=== PATIENT | male | born 1950 | race Caucasian/White ===

== ENCOUNTER 2018-02-15 13:31 | Observation (INO) | payer MEDICARE, OTHER ==
[~2018-02-15] VITALS: Ht 172.7 cm; Wt 70.3 kg
--- OUTSIDE RECORDS SUMMARY | 2018-02-15 13:38 | XMS REPORT ---
Author NYLA Thompson [facility] eClinicalWorks Address Unknown Phone Unavailable Care Team Providers Care Devulcanizer Loader Name Role Phone NYLA CHAVARRIA CP Unavailable Allergies, Adverse Reactions, Alerts Substance Reaction Event Type Niacin Info Not Available Drug Allergy Problems Problem Type Condition Code Onset Dates Condition Status Problem Diabetes type 2, controlled E11.9 Active Problem Left knee pain M25.562 Active Problem Pre-op evaluation Z01.818 Active Assessment Left knee pain M25.562 Active Assessment Pre-op evaluation Z01.818 Active Assessment Diabetes type 2, controlled E11.9 Active Medications Medication Code System Code Instructions Start Date End Date Status Dosage GlipiZIDE [facility] [address]-59 5 MG Orally Once a day 1 tablet Multivitamin [facility] 10763-92784 Orally not defined Metformin HCl [facility] [address]-79 1000 MG Orally Twice a day 1 tablet with meals Atorvastatin Calcium [facility] [address]-87 20 MG Orally Once a day 1 tablet Acetaminophen-Codeine #3 [facility] [address]-54 300-30 MG Orally every 6 hrs 1 tablet as needed Aspirin [facility] [address]-95 81 MG Orally Once a day 1 tablet Accu-Chek Sallie ND 0 w/Device not defined Lisinopril [facility] [address]-45 10 MG Orally Once a day 1 tablet Sildenafil Citrate [facility] [address]-27 100 MG Orally Once a day 1 tablet as needed Procedures Procedure Coding System Code Date COMPREHEN METABOLIC PANEL CPT-4 68128 November 13, 2015 GLYCATED HEMOGLOBIN TEST CPT-4 49956 November 13, 2015 COMPLETE CBC W/AUTO DIFF WBC CPT-4 67760 November 13, 2015 Office Visit, New Pt., Level 4 CPT-4 88838 November 13, 2015 VENIPUNCT, ROUTINE* CPT-4 84605 November 13, 2015 Vital Signs Date/Time: November 13, 2015 Temperature 98.1 F Weight 199.0 lbs Height 66 in BMI 32.12 Index Blood Pressure Diastolic 75 mmHg Blood Pressure Systolic 125 mmHg Cardiac Monitoring Heart Rate 72 bpm Results Name Result Date Reference Range Unit Abnormality Flag CBC ----Lymphs 23 09606806 % ----Neutrophils 62 85437840 % ----Baso (Absolute) 0.0 00309076 0.0-0.2 x10E3/uL ----Hemoglobin 14.4 56918793 12.6-17.7 g/dL ----Eos (Absolute) 0.3 58911289 0.0-0.4 x10E3/uL ----Hematocrit 41.8 44923392 37.5-51.0 % ----Monocytes(Absolute) 0.5 44161257 0.1-0.9 x10E3/uL ----MCV 90 84718384 79-97 fL ----Lymphs (Absolute) 1.4 73604483 0.7-3.1 x10E3/uL ----MCH 30.9 28788321 26.6-33.0 pg ----Neutrophils (Absolute) 3.6 62123226 1.4-7.0 x10E3/uL ----MCHC 34.4 73863539 31.5-35.7 g/dL ----Immature Granulocytes 0 91422795 % ----Basos 1 20588212 % ----RDW 12.9 59478136 12.3-15.4 % ----Immature Grans (Abs) 0.0 31024288 0.0-0.1 x10E3/uL ----WBC 5.8 86575007 3.4-10.8 x10E3/uL ----Platelets 221 87074235 150-379 x10E3/uL ----Eos 5 27457544 % ----RBC 4.66 93440480 4.14-5.80 x10E6/uL ----Monocytes 9 48052900 % CMP ----Globulin, Total 2.2 95377539 1.5-4.5 g/dL ----eGFR If Africn Am 105 84892354 >59 mL/min/1.73 ----eGFR If NonAfricn Am 91 53884335 >59 mL/min/1.73 ----Albumin, Serum 4.4 20151113 3.6-4.8 g/dL ----Sodium, Serum 139 88930753 134-144 mmol/L ----Protein, Total, Serum 6.6 13466092 6.0-8.5 g/dL ----BUN/Creatinine Ratio 25 20151113 10-22 H ----Calcium, Serum 9.2 34432091 8.6-10.2 mg/dL ----AST (SGOT) 23 20151113 0-40 IU/L ----Glucose, Serum 172 52560533 65-99 mg/dL H ----Alkaline Phosphatase, S 87 50610049 39-117 IU/L ----Bilirubin, Total 0.9 67602470 0.0-1.2 mg/dL ----Creatinine, Serum 0.88 85686601 0.76-1.27 mg/dL ----A/G Ratio 2.0 20151113 1.1-2.5 ----BUN 22 20151113 8-27 mg/dL ----Carbon Dioxide, Total 22 20151113 18-29 mmol/L ----ALT (SGPT) 30 20151113 0-44 IU/L ----Potassium, Serum 4.7 33492385 3.5-5.2 mmol/L ----Chloride, Serum 99 92013766 97-108 mmol/L A1C (IN HOUSE) ----A1C IN HOUSE 7.7 20151113 4.3 - 5.6 % ----Previous A1c n/a 20151113 ----Lot [id number] ----Exp date 20151113 ROUTINE VENIPUNCTURE Summary Purpose eClinicalWorks Submission
[2018-02-15] MEDS ORDERED: NS IV 1000 ML 1,000 ML IV ONE (13:42)
[2018-02-15] MEDS ORDERED: NS IV 1000 ML 1,000 ML ONE (13:42)
[2018-02-15] MEDS ORDERED: ASPIRIN 81 MG CHEW (CHILDREN'S ASA) PO ONE (13:45)
[2018-02-15] MEDS ORDERED: NITROGLYCERIN 0.4 MG SL TABS BTL 25'S SL PRN (13:45)
[2018-02-15 13:55] LABS: BASOPHILS % (AUTO) 1 % (0-10); EOSINOPHILS # (AUTO) 0.1 10^3/uL (0.0-0.3); EOSINOPHILS % (AUTO) 1 % (0-10); HEMATOCRIT 32 % (40-54); HEMOGLOBIN 10.8 G/DL (13.3-17.7); LYMPHOCYTES # (AUTO) 2.1 X 10^3 (1.0-4.0); LYMPHOCYTES % (AUTO) 28 % (12-44); MEAN CORPUSCULAR HEMOGLOBIN 31 PG (25-34); MEAN CORPUSCULAR HGB CONC 34 G/DL (32-36); MEAN CORPUSCULAR VOLUME 93 FL (80-99); MONOCYTES # (AUTO) 1.3 X 10^3 (0.0-1.0); MONOCYTES % (AUTO) 17 % (0-12); NEUTROPHILS % (AUTO) 54 % (42-75); PLATELET COUNT 174 10^3/uL (130-400); RED BLOOD COUNT 3.45 10^6/uL (4.35-5.85); RED CELL DISTRIBUTION WIDTH 15.8 % (10.0-14.5); WHITE BLOOD COUNT 7.5 10^3/uL (4.3-11.0)
[2018-02-15 13:59] LABS: INR 1.1 (0.8-1.4); PROTHROMBIN TIME PATIENT 14.2 SEC (12.2-14.7)
[2018-02-15] MEDS ORDERED: GLIP10TA13 PO (14:00)
[2018-02-15] MEDS ORDERED: OXYC5CAP18 PO (14:00)
[2018-02-15] MEDS ORDERED: METF100P2 MC (14:00)
[2018-02-15] MEDS ORDERED: TAMS0.4C2 PO (14:00)
[2018-02-15] MEDS ORDERED: SILD100T67 PO (14:00)
[2018-02-15] MEDS ORDERED: LISI10TA2 PO (14:00)
[2018-02-15] MEDS ORDERED: ATOR20TA66 PO (14:00)
[2018-02-15] MEDS ORDERED: OXYB5TAB9 PO (14:00)
[2018-02-15 14:08] LABS: ALANINE AMINOTRANSFERASE 25 U/L (0-55); ALBUMIN 3.2 GM/DL (3.2-4.5); ALKALINE PHOSPHATASE 113 U/L (40-136); BILIRUBIN,TOTAL 0.5 MG/DL (0.1-1.0); BUN/CREATININE RATIO 18; CALCIUM 9.5 MG/DL (8.5-10.1); CARBON DIOXIDE 23 MMOL/L (21-32); CHLORIDE 96 MMOL/L (98-107); CREATININE SERUM 0.67 MG/DL (0.60-1.30); GFR ESTIMATED > 60; GLUCOSE 171 MG/DL (70-105); MAGNESIUM 1.5 MG/DL (1.8-2.4); POTASSIUM 3.8 MMOL/L (3.6-5.0); SODIUM 132 MMOL/L (135-145); TOTAL PROTEIN 6.5 GM/DL (6.4-8.2)
--- NOTE | 2018-02-15 14:13 | ED Chest Pain ---
General Chief Complaint: Chest Pain Stated Complaint: PAIN IN ARMS AND CHEST Nursing Triage Note: pt reports l sided cp and l shoulder pain since yesterday. Pt also reports intermittent black tarry stools since january 27. Nursing Sepsis Screen: No Definite Risk Source: patient Exam Limitations: no limitations History of Present Illness Date Seen by Provider: Feb 15, 2018 Time Seen by Provider: 13:30 Initial Comments This 67-year-old gentleman presents to emergency room with complaint of chest pain for about 4 days. The pain is unclear the left shoulder and it is fairly constant. He has associated symptoms of some occasional dizziness and nausea. He denies any notable exacerbating or alleviating factors. He did note there was some tenderness to palpation in the area of this morning. He rates his pain as a 5-8/10. He denies any history of cardiopulmonary problems. However, he does have esophageal cancer. He has just finished chemotherapy and radiation about 3 weeks ago. He has an esophageal surgery anticipated for the near future. [facility] [place]. He has no local provider. He states the morphine prescribed to him does not control the pain. Allergies and Home Medications Allergies Coded Allergies: niacin (Verified Allergy, Unknown, 02/15/18) Home Medications Atorvastatin Calcium 20 Mg Tablet, 20 MG PO DAILY, (Reported) Lisinopril 10 Mg Tablet, 10 MG PO DAILY, (Reported) Metformin HCl 100 Gm Powder, 100 GM MC BID, (Reported) Patient Home Medication List Home Medication List Reviewed: Yes Review of Systems Constitutional: no symptoms reported EENTM: No Symptoms Reported Respiratory: No Symptoms Reported Cardiovascular: See HPI Gastrointestinal: See HPI Genitourinary: No Symptoms Reported Musculoskeletal: see HPI Skin: no symptoms reported Psychiatric/Neurological: No Symptoms Reported Endocrine: No Symptoms Reported Hematologic/Lymphatic: No Symptoms Reported Past Jbokyqd-Vttlop-Ztsvpz Hx Past Med/Social Hx: Reviewed and Corrections made Patient Social History Alcohol Use: Denies Use Recreational Drug Use: No Smoking Status: Former Smoker Type Used: Cigarettes Former Smoker, Quit: Jan 29, 1985 Recent Foreign Travel: No Contact w/Someone Who Travel: No Recent Infectious Disease Expo: No Recent Hopitalizations: No Physical Abuse: No Sexual Abuse: No Mistreated: No Fear: No Past Medical History Surgeries: Yes (ltk, lithrotripsy) Vasectomy Respiratory: No Cardiac: Yes High Cholesterol, Hypertension Neurological: No Genitourinary: Yes Benign Prostatic Hyperpl, Prostate Problems, Kidney Stones Gastrointestinal: Yes Gastroesophageal Reflux Musculoskeletal: No Endocrine: Yes Diabetes, Non-Insulin dep HEENT: No Cancer: Yes Esophageal Did You Recieve Any Treatments: No Psychosocial: No Nursing Suicide Risk Score: 0 Integumentary: No Blood Disorders: No Adverse Reaction/Blood Tranf: No Physical Exam Vital Signs Vital Signs - First Documented 02/15/18 13:49 Temp 97.5 Pulse 103 Resp 16 B/P (MAP) 133/80 (97) Pulse Ox 100 O2 Delivery Room Air Capillary Refill : Less Than 3 Seconds Height, Weight, BMI Height: 5'8.00" Weight: 155lbs. oz. 70.420421mj; BMI Method:Stated General Appearance: No Apparent Distress, WD/WN HEENT: PERRL/EOMI, Normal ENT Inspection Neck: Normal Inspection Respiratory: Chest Non Tender, Lungs Clear, Normal Breath Sounds, No Accessory Muscle Use, No Respiratory Distress Cardiovascular: Regular Rate, Rhythm, No Edema, No Murmur, Normal Peripheral Pulses Gastrointestinal: Normal Bowel Sounds, Non Tender, Soft Extremity: Normal Capillary Refill, Normal Inspection, Non Tender, No Calf Tenderness, No Pedal Edema, Other (Negative Arvind) Neurologic/Psychiatric: Alert, Oriented x3, No Motor/Sensory Deficits, Normal Mood/Affect, business continuity manager II-XII Norm as Tested Skin: Normal Color, Warm/Dry Progress/Results/Core Measures Results/Orders Lab Results Laboratory Tests Test 02/15/18 13:38 Range/Units White Blood Count 7.5 4.3-11.0 10^3/uL Red Blood Count 3.45 L 4.35-5.85 10^6/uL Hemoglobin 10.8 L 13.3-17.7 G/DL Hematocrit 32 L 40-54 % Mean Corpuscular Volume 93 80-99 FL Mean Corpuscular Hemoglobin 31 25-34 PG Mean Corpuscular Hemoglobin Concent 34 32-36 G/DL Red Cell Distribution Width 15.8 H 10.0-14.5 % Platelet Count 174 130-400 10^3/uL Mean Platelet Volume 10.0 7.4-10.4 FL Neutrophils (%) (Auto) 54 42-75 % Lymphocytes (%) (Auto) 28 12-44 % Monocytes (%) (Auto) 17 H 0-12 % Eosinophils (%) (Auto) 1 0-10 % Basophils (%) (Auto) 1 0-10 % Neutrophils # (Auto) 4.0 1.8-7.8 X 10^3 Lymphocytes # (Auto) 2.1 1.0-4.0 X 10^3 Monocytes # (Auto) 1.3 H 0.0-1.0 X 10^3 Eosinophils # (Auto) 0.1 0.0-0.3 10^3/uL Basophils # (Auto) 0.0 0.0-0.1 10^3/uL Prothrombin Time 14.2 12.2-14.7 SEC INR Comment 1.1 0.8-1.4 Activated Partial Thromboplast Time 33 24-35 SEC D-Dimer 0.87 H 0.00-0.49 UG/ML Sodium Level 132 L 135-145 MMOL/L Potassium Level 3.8 3.6-5.0 MMOL/L Chloride Level 96 L 98-107 MMOL/L Carbon Dioxide Level 23 21-32 MMOL/L Anion Gap 13 5-14 MMOL/L Blood Urea Nitrogen 12 7-18 MG/DL Creatinine 0.67 0.60-1.30 MG/DL Estimat Glomerular Filtration Rate > 60 BUN/Creatinine Ratio 18 Glucose Level 171 H 70-105 MG/DL Calcium Level 9.5 8.5-10.1 MG/DL Magnesium Level 1.5 L 1.8-2.4 MG/DL Total Bilirubin 0.5 0.1-1.0 MG/DL Aspartate Amino Transf (AST/SGOT) 28 5-34 U/L Alanine Aminotransferase (ALT/SGPT) 25 0-55 U/L Alkaline Phosphatase 113 40-136 U/L Myoglobin 37.1 10.0-92.0 NG/ML Troponin I < 0.30 <0.30 NG/ML Total Protein 6.5 6.4-8.2 GM/DL Albumin 3.2 3.2-4.5 GM/DL My Orders Orders - ADRIANNA VELEZ MD Chest Pa/Lat (2 View) (02/15/18 13:42) Saline Lock/Iv-Start (02/15/18 13:42) Ns Iv 1000 Ml (Sodium Chloride 0.9%) (02/15/18 13:42) Cbc With Automated Diff (02/15/18 13:42) Magnesium (02/15/18 13:42) Ekg Tracing (02/15/18 13:42) Cardiac Profile 1 (02/15/18 13:42) Comprehensive Metabolic Panel (02/15/18 13:42) Myoglobin Serum (02/15/18 13:42) Protime With Inr (02/15/18 13:42) Partial Thromboplastin Time (02/15/18 13:42) O2 (02/15/18 13:42) Monitor-Rhythm Ecg Trace Only (02/15/18 13:42) Lipid Panel (02/16/18 06:00) Aspirin Chewable Tablet (Baby Aspirin Ch (02/15/18 13:45) Nitroglycerin 0.4 Mg Btl 25's (Nitrostat (02/15/18 13:45) Saline Lock/Iv-Start (02/15/18 13:42) Fibrin Degradation Products (02/15/18 13:42) Ns Iv 1000 Ml (Sodium Chloride 0.9%) (02/15/18 13:42) Iohexol Injection (Omnipaque 350 Mg/Ml 1 (02/15/18 14:45) Ns (Ivpb) (Sodium Chloride 0.9% Ivpb Bag (02/15/18 14:45) Ct Angio Chest W (02/15/18 14:41) Ketorolac Injection (Toradol Injection) (02/15/18 16:30) Medications Given in ED Current Medications Medications Dose Ordered Sig/Seth Route Start Time Stop Time Status Last Admin Dose Admin Aspirin 324 mg ONCE ONCE PO 02/15/18 13:45 02/15/18 13:46 DC 02/15/18 14:06 324 MG Iohexol 150 ml ONCE ONCE IV 02/15/18 14:45 02/15/18 14:46 DC 02/15/18 14:54 140 ML Ketorolac Tromethamine 15 mg ONCE ONCE IVP 02/15/18 16:30 02/15/18 16:31 DC 02/15/18 16:23 15 MG Sodium Chloride 100 ml ONCE ONCE IV 02/15/18 14:45 02/15/18 14:46 DC 02/15/18 14:54 100 ML Sodium Chloride 1,000 ml @ 0 mls/hr Q0M ONCE IV 02/15/18 13:42 02/15/18 13:45 DC 02/15/18 13:47 1,000 MLS/HR Vital Signs/I&O 02/15/18 02/15/18 13:49 13:49 Temp 97.5 Pulse 103 Resp 16 B/P (MAP) 133/80 (97) Pulse Ox 100 O2 Delivery Room Air Blood Pressure Mean: 97 Progress Progress Note : Progress Note Patient was seen and evaluated with the chest pain protocol. Nitroglycerin was not administered as he had low normotensive blood pressures. He did receive a liter of IV fluids which seemed to improve his tachycardia. Aspirin was given as part of the protocol. Toradol was administered for his pain. I did contact the [facility] this [facility] and requested that I contact the [facility] on his behalf. I was informed there is no prior authorization for this visit but payment cannot be guaranteed. Case was discussed with Dr. Contreras who felt it was most appropriate for patient to be admitted for cardiac rule out. I agree with this assessment given patient's risk factors and the fact that he will be undergoing a significant surgery in the near future. Pulmonary embolus was ruled out with CT angiogram after positive D dimer. Initial ECG Impression Date: Feb 15, 2018 Initial ECG Impression Time: 13:36 Initial ECG Rate: 106 Initial ECG Rhythm: S.Tach Comment Sinus tachycardia with no ST elevation. Borderline ST depression in V2 through V4. Normal intervals or axis deviation. Diagnostic Imaging Diagonstic Imaging: Xray Plain Films/CT/US/NM/MRI: chest Comments Chest x-ray viewed by me and report reviewed. See report below: NAME: [facility] REC#: [id number] PT STATUS: REG ER : 1950 PHYSICIAN: ADRIANNA VELEZ MD ADMIT DATE: 02/15/18/ER Draft Date of Exam:02/15/18 CHEST PA/LAT (2 VIEW) EXAM: CHEST PA/LAT (2 VIEW) INDICATION: Chest pain. COMPARISON: None. FINDINGS: Normal heart size and pulmonary vascularity. No focal pulmonary opacity, pleural effusion, or pneumothorax. Chronic left rib fractures. No acute osseous findings. IMPRESSION: No acute cardiopulmonary findings. Dictated on workstation # [id number] Dict: 02/15/18 1428 Trans: 02/15/18 1431 [id number] Interpreted by: SHILA CLINE MD Diagonstic Imaging: CT Plain Films/CT/US/NM/MRI: chest Comments CT angiogram of the chest viewed by me and report reviewed. See report below: NAME: [facility] REC#: [id number] PT STATUS: REG ER : 1950 PHYSICIAN: ADRIANNA VELEZ MD ADMIT DATE: 02/15/18/ER Draft Date of Exam:02/15/18 CT ANGIO CHEST W PROCEDURE: CT angiography of the chest with contrast. TECHNIQUE: Multiple contiguous axial images were obtained through the chest after uneventful bolus administration of intravenous contrast. Reconstructed CTA MIP acquisitions were also performed. INDICATION: Chest pain radiating to left shoulder. History of esophageal cancer. COMPARISON: Chest radiographs from earlier today. FINDINGS: Normal caliber thoracic aorta without evidence of aneurysm or dissection. No pulmonary artery filling defects. Normal heart size. Small pericardial effusion measuring up to 0.4 cm in maximum thickness. No mediastinal or hilar lymphadenopathy. Diffuse wall thickening of a dilated esophagus below the level of the aly. Mild linear scarring in the right lung base. The lungs are otherwise clear. No endobronchial lesions. No pleural effusion or pneumothorax. The visualized upper abdominal contents are unremarkable. Chronic left rib fractures. No acute osseous findings. IMPRESSION: 1. Diffuse dilatation and wall thickening of the esophagus below the level of the aly. No fluid collections or free air in the mediastinum. 2. Normal caliber thoracic aorta without evidence of dissection. No pulmonary emboli. 3. Small pericardial effusion measuring up to 4 mm. Dictated on workstation # [id number] Dict: 02/15/18 1514 Trans: 02/15/[address] [facility] [id number] Interpreted by: SHILA CLINE MD Departure Communication (Admissions) Time/Spoke to Admitting Phy: 16:33 Dr. Gill Time/Spoke to Consulting Phy: 15:30 Dr. Contreras was consulted and would like the patient to be admitted for cardiac rule out. Patient has not had a cardiac evaluation performed in the past. He is preparing to undergo a significant surgery related to his esophageal cancer. Cardiac rule out and clearance should be obtained prior to that surgery. Patient has risk factors that increase his risk for cardiac disease including a remote smoking history and diabetes at present. Impression Primary Impression: Chest pain Qualified Codes: R07.9 - Chest pain, unspecified Additional Impression: Esophageal cancer Qualified Codes: C15.9 - Malignant neoplasm of esophagus, unspecified Disposition: ADMITTED INPATIENT Condition: Improved Admissions Decision to Admit Reason: Admit from ER (General) Decision to Admit/Date: Feb 15, 2018 Time/Decision to Admit Time: 15:30 Departure-Patient Inst. Referrals: FRANCHESCA JEFFERS MD (PCP) Primary Care Physician ADRIANNA VELEZ MD Feb 15, 2018 14:13
[2018-02-15 14:14] LABS: MYOGLOBIN SERUM 37.1 NG/ML (10.0-92.0)
--- NOTE | 2018-02-15 14:31 | Diagnostic Imaging Report ---
EXAM: CHEST PA/LAT (2 VIEW) INDICATION: Chest pain. COMPARISON: None. FINDINGS: Normal heart size and pulmonary vascularity. No focal pulmonary opacity, pleural effusion, or pneumothorax. Chronic left rib fractures. No acute osseous findings. IMPRESSION: No acute cardiopulmonary findings. Dictated by: Dictated on workstation # [id number]
[2018-02-15] MEDS ORDERED: NS 100 ML (IVPB) BAG IV ONE (14:45)
[2018-02-15] MEDS ORDERED: IOHEXOL 350 MG/ML 150 ML (OMNIPAQUE 350) VIAL IV ONE (14:45)
--- NOTE | 2018-02-15 15:22 | Diagnostic Imaging Report ---
PROCEDURE: CT angiography of the chest with contrast. TECHNIQUE: Multiple contiguous axial images were obtained through the chest after uneventful bolus administration of intravenous contrast. Reconstructed CTA MIP acquisitions were also performed. INDICATION: Chest pain radiating to left shoulder. History of esophageal cancer. COMPARISON: Chest radiographs from earlier today. FINDINGS: Normal caliber thoracic aorta without evidence of aneurysm or dissection. No pulmonary artery filling defects. Normal heart size. Small pericardial effusion measuring up to 0.4 cm in maximum thickness. No mediastinal or hilar lymphadenopathy. Diffuse wall thickening of a dilated esophagus below the level of the aly. Mild linear scarring in the right lung base. The lungs are otherwise clear. No endobronchial lesions. No pleural effusion or pneumothorax. The visualized upper abdominal contents are unremarkable. Chronic left rib fractures. No acute osseous findings. IMPRESSION: 1. Diffuse dilatation and wall thickening of the esophagus below the level of the aly. No fluid collections or free air in the mediastinum. 2. Normal caliber thoracic aorta without evidence of dissection. No pulmonary emboli. 3. Small pericardial effusion measuring up to 4 mm. Dictated by: Dictated on workstation # [id number]
[2018-02-15] MEDS ORDERED: KETOROLAC 30 MG/ML VIAL IVP ONE (16:30)
[2018-02-15 18:15] VITALS: BP 125/77
[2018-02-15] MEDS ORDERED: PATIENT MAY USE OWN MEDS, ALL PO SCH (18:15)
[2018-02-15 20:00] VITALS: BP 134/65
[2018-02-15] MEDS: morphine INJ 10 MG/ML 1ML (SYR OR VIAL) IV PRN (20:15)
[2018-02-15] MEDS: inSUlin ASPART (NovoLOG) 1 UNIT/0.01 ML (CHARGE PER UNIT) SC SCH (20:19)
[2018-02-16] VITALS (7 sets, daily range): BP systolic 112–139; BP diastolic 54–80
[2018-02-16] MEDS: KETOROLAC 15 MG/ML VIAL IV PRN ×3 (01:54→13:47)
[2018-02-16 03:40] LABS: CHOLESTEROL 78 MG/DL (< 200); HDL CHOLESTEROL 23 MG/DL (40-60); TRIGLYCERIDES 89 MG/DL (<150); VLDL CHOLESTEROL 18 MG/DL (5-40)
[2018-02-16] MEDS: morphine INJ 10 MG/ML 1ML (SYR OR VIAL) IV PRN ×4 (04:15→15:03)
[2018-02-16] MEDS: inSUlin ASPART (NovoLOG) 1 UNIT/0.01 ML (CHARGE PER UNIT) SC SCH ×3 (06:09→14:11)
[2018-02-16] MEDS ORDERED: ASPIRIN E.C. 81 MG (ECOTRIN) TAB PO SCH (09:00)
[2018-02-16] MEDS ORDERED: REGADENOSON 0.4 MG/5 ML SYR (LEXISCAN) IV ONE ×2 (09:12→09:30)
--- NOTE | 2018-02-16 09:14 | Consultation-Cardiology ---
HPI-Cardiology Cardiology Consultation: Date of Consultation 02/16/18 Date of Admission Attending Physician Char Gill MD Admitting Physician No,Local Physician Consulting Physician Carie CONTRERAS MD HPI: Time Seen by Provider: 09:15 Chief Complaint: Chest pain This is a 67-year-old gentleman with history of esophageal cancer who underwent radiation and chemotherapy till 01/23/2018. Esophageal cancer surgery is expected in February. He has history of diabetes, hypertension, hyperlipidemia. He quit smoking in 1990. He presents with chest pain all day yesterday and today. Even during my history he was complaining of chest pain. No exacerbating or relieving factors. No radiation. Central chest pain. Moderate to severe intensity. Review of Systems-Cardiology Review of Systems Constitutional: As described under HPI; No As described under HPI, No no symptoms reported, No chills, No fever, No lightheadedness Eyes: No As described under HPI, No no symptoms reported, No blindness, No blurred vision, No contact lenses, No drainage, No decreased acuity, No foreign body sensation, No pain, No vision change Ears/Nose/Throat: No As described under HPI, No no symptoms reported, No chronic hearing loss, No ear discharge, No ear pain, No nasal drainage, No ulcerations Respiratory: No no symptoms reported; As described under HPI; No As described under HPI, No cough, No orthopnea, No shortness of breath, No SOB with excertion Cardiovascular: No no symptoms reported; As described under HPI; No As described under HPI; chest pain; No edema, No irregular heart rate, No lightheadedness, No palpitations Gastrointestinal: No no symptoms reported, No As described under HPI, No abdomen distended, No abdominal pain, No blood streaked bowels, No constipation , No diarrhea, No nausea, No vomiting, No stool coloration changes Genitourinary: No As described under HPI, No burning, No dysuria, No discharge , No frequency, No flank pain, No hematuria, No urgency Musculoskeletal: No no symptoms reported, No As describe under HPI, No back pain, No gout, No joint pain, No joint swelling, No muscle pain, No muscle stiffness, No neck pain, No other Skin: No no symptoms reported, No As described under HPI, No change in color, No change in hair/nails, No dryness, No lesions, No lumps, No rash, No other, No skin related problems, No ulcerations, No rash on exposed areas, No ulcerations on exposed areas Psychiatric/Neurological: No anxiety, No depression, No seizure, No focal weakness, No syncope Hematologic: No bleeding abnormalities [id number] Hx Patient Social History Alcohol Use: Denies Use Recreational Drug Use: No Smoking Status: Former Smoker Type Used: Cigarettes Recent Foreign Travel: No Recent Infectious Disease Expo: No Hospitalization with Isolation: Denies Physical Abuse Screen: No Sexual Abuse: No Past Medical History PMH As described under Assessment. Allergies and Home Medications Allergies Coded Allergies: niacin (Verified Allergy, Unknown, 02/15/18) Home Medications Atorvastatin Calcium 20 Mg Tablet, 10 MG PO Q48H, (Reported) TAKES 1/2 (20MG) TABLET Chlorpromazine HCl 25 Mg Tablet, 25 MG PO TID PRN for HICCUPS, (Reported) Docusate Sodium 100 Mg Capsule, 100 MG PO BID, (Reported) Glipizide 10 Mg Tablet, 10 MG PO BID, (Reported) Lisinopril 10 Mg Tablet, 5 MG PO DAILY, (Reported) TAKES 1/2 (10MG) TABLET Metformin HCl 1,000 Mg Tablet, 1,000 MG PO BID, (Reported) Morphine Sulfate 10 Mg/5 Ml Solution, 1 TSP PO Q6H PRN for PAIN-SEVERE, ( Reported) Multivitamin 1 Each Tablet, 1 TAB PO DAILY, (Reported) Naproxen 500 Mg Tablet, 500 MG PO BID PRN for PAIN-MILD, (Reported) Omeprazole 20 Mg Capsule.dr, 20 MG PO DAILY, (Reported) Ondansetron HCl 8 Mg Tablet, 8 MG PO Q8H PRN for NAUSEA/VOMITING-1ST LINE, ( Reported) Sildenafil Citrate 100 Mg Tablet, 100 MG PO UD PRN for ED, (Reported) Tamsulosin HCl 0.4 Mg Cap.er.24h, 0.4 MG PO HS, (Reported) Patient Home Medication List Home Medication List Reviewed: Yes Physical Exam-Cardiology Physical Exam Vital Signs/I&O 02/16/18 02/16/18 02/16/18 02/16/18 04:00 04:00 07:00 08:00 Temp 98.4 Pulse 89 95 Resp 19 B/P (MAP) 123/73 (90) Pulse Ox 96 97 99 O2 Delivery Room Air Room Air Room Air 02/16/18 02/16/18 02/16/18 02/16/18 08:00 09:00 09:17 11:00 Temp 99.3 Pulse 92 101 113 Resp 18 16 B/P (MAP) 133/80 (97) 138/76 (96) 112/54 (73) Pulse Ox 99 99 98 98 O2 Delivery Room Air Room Air Room Air 02/16/18 02/16/18 02/16/18 12:00 13:00 13:00 Pulse 95 97 B/P (MAP) 120/61 (80) Pulse Ox 97 98 O2 Delivery Room Air 02/16/18 00:00 Intake Total 800 ml Balance 800 ml Capillary Refill : Less Than 3 Seconds Constitutional: appears stated age, AAO x 3; No apparent distress; well- developed, well-nourished HEENT: PERRL; No normal ENT inspection, No TMs normal, No pharynx normal, No scleral icterus (R), No scleral icterus (L), No pale conjunctivae (R), No pale conjunctivae (L), No photophobia, No TM abnormal (R), No TM abnormal (L), No pharyngeal erythema, No tonsillar exudate, No other, No discharge, No EOMI; hearing is well preserved; No hard of hearing; oral hygience is good; No ulceration, No xanthelasmas are seen Neck: No non-tender, No full range of motion, No supple, No normal inspection, No carotid bruit, No limited range of motion, No lymphadenopathy (R), No lymphadenopathy (L), No tender lateral, No tender midline, No thyromegaly, No other; carotid pulses are 2 + bilaterally; No with good upstrokes Respiratory: No accessory muscle use, No respiratory distress, No chest tender , No chest expansion is symmetric; chest is bilaterally symmetric; No lungs clear to percussion; lungs clear to auscultation; No crackles, No rhonchi, No rales, No stridor, No wheezing, No pleural rub, No other Cardiovascular: regular rate-rhythm; No irregularly irregular, No extra beats, No parasternal heave is noted, No JVD, No edema, No bradycardia, No tachycardia , No point of maximal impulse, No cardiac thrills are palpable; S1 and S2; No gallop/S3, No gallop/S4, No diastolic murmur, No systolic murmur, No friction rub, No click, No other Gastrointestinal: No tender, No soft, No round, No distended, No pulsatile mass , No organomegaly, No guarding, No rebound, No tenderness, No hernia, No mass, No audible bowel sounds, No abnormal bowel sounds, No abdominal bruits, No spleenomegaly, No other Rectal: deferred Extremities: No normal range of motion, No non-tender, No normal inspection, No pedal edema, No calf tenderness, No normal capillary refill, No pelvis stable , No calf tenderness, No inflammation, No pedal edema, No slow capillary refill , No swelling, No other, No abrasion, No clubbing, No cyanosis, No ecchymosis, No laceration, No no lower extremity edema bilateral, No significant edema, No tenderness, No wound Neurologic/Psychiatric: no motor/sensory deficits, alert, normal mood/affect, oriented x 3, power is 5/5 both on sides Skin: No normal color, No warm/dry, No cyanosis, No cool, No diaphoresis, No damp, No ecchymosis, No jaundice, No mottled, No pallor, No rash, No tattoos/ piercings, No ulcerations, No rash on exposed areas, No ulcerations on exposed areas, No other Data Review Labs Laboratory Tests 02/15/18 20:18: Glucometer 144H 02/16/18 03:05: Triglycerides Level 89, Cholesterol Level 78, LDL Cholesterol Direct 39, VLDL Cholesterol 18, HDL Cholesterol 23L 02/16/18 05:22: Glucometer 105 02/16/18 08:05: Glucometer 110 02/16/18 14:06: Glucometer 205H ECG Impression ECG Initial ECG Rhythm: Normal Sinus A/P-Cardiology Assessment/Admission Diagnosis Chest pain, diabetes, hypertension, hyperlipidemia, history of radiation to the chest, esophageal cancer, hyponatremia Plan Chest pain, continues chest pain. Acute coronary syndrome ruled out with negative troponin. Negative EKG. Nuclear stress test and echocardiogram were within normal limits. Chest pain is very likely noncardiac in origin. Will discuss with Dr. Gill. diabetes, deferred to primary team. hypertension, patient's blood pressure is borderline low therefore no blood pressure medications. hyperlipidemia, lipid profile within reasonable limits. No statin is required. history of radiation to the chest, esophageal cancer, chest pain could be due to esophageal cancer. hyponatremia, unclear etiology. Thank you for your consultation. Please call me if you have any questions. Irasema Contreras MD, FACP, FACC, FSCAI, FHRS, CCDS Interventional Cardiology Cardiac Electrophysiology Vascular Medicine and Endovascular Interventions Clinical Quality Measures AMI/AHF: ASA po Prior to arrival: No DVT/VTE Risk/Contraindication: Risk Factor Score Per Nursin RFS Level Per Nursing on Admit: 4+=Very High Carie CONTRERAS MD Feb 16, 2018 9:14 am
[2018-02-16] MEDS ORDERED: CATHETER FLUSH 10 ML SYR IV PRN (09:30)
[2018-02-16] MEDS ORDERED: MULT-35 PO (12:51)
[2018-02-16] MEDS ORDERED: CHLO25TA20 PO (12:51)
[2018-02-16] MEDS ORDERED: METF10002 PO (12:51)
[2018-02-16] MEDS ORDERED: NAPR-915 PO (12:51)
[2018-02-16] MEDS ORDERED: MORP10SO15 PO (12:51)
[2018-02-16] MEDS ORDERED: OMEP20CA12 PO (12:51)
[2018-02-16] MEDS ORDERED: DOCU-143 PO (12:51)
[2018-02-16] MEDS ORDERED: ONDA8TAB6 PO (13:00)
--- NOTE | 2018-02-16 13:38 | Cardiology Stress Test Report ---
Stress Test Report Type of NM Stress Test: Test Type: LEXISCAN 0.4MG/5ML Date of Procedure/Referring: Date of Procedure: Feb 16, 2018 PCP Char Gill MD Admitting Physician No,Local Physician Indications: Chest pain Baseline Heart Rate: 106 Baseline Blood Pressure: Blood Pressure Systolic: 138 Blood Pressure Diastolic: 76 Baseline EKG: Baseline EKG: sinus rhythm Summary & Conclusion: Summary: The patient was brought to the stress lab after informed consent was taken. Stress test was performed according to the Lexiscan protocol. 0.4 mg of IV Lexiscan was given. Low-grade exercise was performed. Baseline EKG showed sinus rhythm at 106 BPM. Initial blood pressure was 138/76 mmHg. Maximum heart rate was 128 bpm and blood pressure 142/76 mmHg. Patient did not have any chest pain, arrhythmias or ST segment changes during the stress test. 9.84 mCi of Myoview were given for rest imaging and 31.7 mCi of Myoview given for stress imaging. Transient ischemic dilatation score 1.02, EF 59 percent. Normal wall motion. Normal myocardial perfusion imaging during rest and stress. Conclusion: Pharmacological stress test was negative for ischemia. Normal LV function with no wall motion abnormalities. Normal myocardial perfusion imaging during rest and stress. Carie BENNETT MD Feb 16, 2018 1:38 pm
--- NOTE | 2018-02-16 15:27 | History & Physical-Hospitalist ---
History of Present Illness HPI/Chief Complaint The patient is a 67-year-old white male who was admitted after he presented to the emergency room with a chief complaint of left-sided and left shoulder pain. This began about one week ago and has been largely continuous and increasing in intensity. 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 He has been being treated at the [facility] with chemotherapy and radiation therapy which he has now completed. He is to be seen by his surgeon at the [facility] in mid February and if he checks out he would be scheduled for surgery with attempt to cure. He has not had previous known heart disease. He has had some shoulder problems. He states that he has been unable to sleep on the left shoulder this past week. Source: patient Exam Limitations: no limitations Date Seen 02/16/18 Time Seen by Provider: 14:45 Attending Physician Char Gill MD PCP No,Local Physician Referring Physician Date of Admission Feb 15, 2018 at 16:40 Home Medications & Allergies Home Medications Reviewed patient Home Medication Reconciliation performed by pharmacy medication reconciliations systems testing laboratory technician and/or nursing. Patients Allergies have been reviewed. Allergies Allergies Coded Allergies niacin (Verified Allergy, Unknown, 02/15/18) Past Pnwlvae-Zfomtl-Mimsxa Hx Past Med/Social Hx: Reviewed Nursing Past Med/Soc Hx, Reviewed and Corrections made Patient Social History Alcohol Use: Denies Use Recreational Drug Use: No Smoking Status: Former Smoker Former Smoker, Quit: Feb 15, 1990 Type Used: Cigarettes Physical Abuse Screen: No Sexual Abuse: No Recent Foreign Travel: No Contact w/other who traveled: No Recent Hopitalizations: Yes Recent Infectious Disease Expo: No Seasonal Allergies Seasonal Allergies: No Past Medical History Surgeries: Vasectomy Currently Using CPAP: Yes (SET AT 20) Currently Using BIPAP: No Cardiac: High Cholesterol, Hypertension Genitourinary: Kidney Stones Gastrointestinal: Gastroesophageal Reflux, Romero's Esophagus, Hiatal Hernia Endocrine: Diabetes, Non-Insulin dep Are Your Blood Sugars Over 250: No Cancer: Esophageal Did You Recieve Any Treatments: Yes What Type of Treatment Did You: Chemotherapy, Radiation Psychosocial: Anxiety History of Blood Disorders: No Adverse Reaction to Blood Garces: No Review of Systems Constitutional: see HPI EENTM: no symptoms reported Respiratory: no symptoms reported Cardiovascular: chest pain Gastrointestinal: see HPI Genitourinary: no symptoms reported Musculoskeletal: no symptoms reported Skin: no symptoms reported Psychiatric/Neurological: No Symptoms Reported Physical Exam Physical Exam Vital Signs Vital Signs - First Documented 02/15/18 13:49 Temp 97.5 Pulse 103 Resp 16 B/P (MAP) 133/80 (97) Pulse Ox 100 O2 Delivery Room Air Capillary Refill : Less Than 3 Seconds Height, Weight, BMI Height: 5'8.00" Weight: 155lbs. 0.0oz. [id number]; 23.6 BMI Method:Stated General Appearance: No Apparent Distress Eyes: Bilateral Eye Normal Inspection HEENT: Normal ENT Inspection Neck: Full Range of Motion, Normal Inspection Respiratory: Chest Non Tender, Lungs Clear, Normal Breath Sounds, No Accessory Muscle Use, No Respiratory Distress Cardiovascular: Regular Rate, Rhythm, No Edema, No Gallop, No JVD, No Murmur, Normal Peripheral Pulses Gastrointestinal: Normal Bowel Sounds, No Organomegaly, No Pulsatile Mass, Non Tender, Soft Back: Normal Inspection Extremity: Normal Capillary Refill, Normal Inspection, Normal Range of Motion, Non Tender, No Calf Tenderness, No Pedal Edema Neurologic/Psychiatric: Alert, Oriented x3, No Motor/Sensory Deficits, Normal Mood/Affect, mirror framer II-XII Norm as Tested Results Results/Procedures Labs Laboratory Tests 02/15/18 13:38 Patient resulted labs reviewed. Assessment/Plan Admission Diagnosis 1.atypical chest pain 2.carcinoma of the esophagus Admission Status: Observation Assessment and Plan Patient has completed nuclear scan and has been cleared by Dr. Contreras for discharge. See discharge sequence for medications and routines Clinical Quality Measures AMI/AHF: ASA po Prior to arrival: No DVT/VTE Risk/Contraindication: Risk Factor Score Per Nursin RFS Level Per Nursing on Admit: 4+=Very High GURPREET BARRAZA MD Feb 16, 2018 15:27
--- NOTE | 2018-02-18 12:58 | Physician Query-Final Dx ---
Final Diagnosis Give Final Diagnosis Please give Final Diagnosis BAUTISTA CONKLIN Feb 18, 2018 12:58
--- NOTE | 2018-03-04 13:57 | Short Stay Summary-Hospitalist ---
Short Stay Diagnosis D/C Date Feb 16, 2018 at 15:33 Atypical chest pain. 2.carcinoma of the esophagus post surgical removal. Clinical Quality Measures AMI/AHF: ASA po Prior to arrival: No DVT/VTE Risk/Contraindication: Risk Factor Score Per Nursin RFS Level Per Nursing on Admit: 4+=Very High GURPREET BARRAZA MD Mar 04, 2018 13:57
== END 2018-02-16 15:33 | disposition home or self-care (01) ==
LOC: EDUNIT# 13:31 → ER 13:35 → UNDOADMOB 16:40 → ICU 16:40 → UNDODISOB 02-16 16:20
PROVIDERS: ADMIT Family Medicine; ATTEND Family Medicine
DX: R07.89 Other chest pain (principal); C15.9 Malignant neoplasm of esophagus, unspecified; E87.1 Hypo-osmolality and hyponatremia; I08.3 Combined rheumatic disorders of mitral, aortic and tricuspid valves; I10 Essential (primary) hypertension; E78.5 Hyperlipidemia, unspecified; E11.9 Type 2 diabetes mellitus without complications; N40.0 Benign prostatic hyperplasia without lower urinary tract symptoms; K21.9 Gastro-esophageal reflux disease without esophagitis; Z87.891 Personal history of nicotine dependence; Z92.21 Personal history of antineoplastic chemotherapy; Z92.3 Personal history of irradiation; Z79.84 Long term (current) use of oral hypoglycemic drugs
CPT/HCPCS: 36415; 71046; 71275; 78452; 80053; 80061; 82962; 83735; 83874; 84484; 85025; 85379; 85610; 85730; 93005; 93017; 93041; 93306; 96361; 96374